=== PATIENT | female | born 1990 | race African-American/Black ===

== ENCOUNTER 2017-07-24 10:18 | Emergency (ER) ==
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
[2017-07-24 10:50] VITALS: BP 123/82; TEMP 98.3; BMI 29.4
== END 2017-07-24 11:00 | disposition home or self-care (01) ==
LOC: ED 10:18
DX: Z04.1 Encounter for examination and observation following transport accident (principal); V89.2XXA Person injured in unspecified motor-vehicle accident, traffic, initial encounter
CPT/HCPCS: 99283